=== PATIENT | male | born 1950 | race Two or more races ===

== ENCOUNTER 2022-04-07 07:13 | Inpatient (IN) | payer MEDICARE, MEDICAID ==
[2022-04-07] VITALS (35 sets, daily range): BP systolic 95–132; BP diastolic 24–73
[~2022-04-07] VITALS: Ht 190.5 cm; Wt 100.3 kg
[2022-04-07] MEDS ORDERED: ONDANSETRON HCL 4MG/2ML INJ IV STA ×2 (07:35→08:56)
[2022-04-07] MEDS ORDERED: MORPHINE SULFATE 4 MG/ML CPJ (NOT FOR IM USE) IV STA ×2 (07:35→08:56)
[2022-04-07] MEDS ORDERED: SODIUM CHLORIDE 0.9% 1,000 ML IV ONE (07:45)
[2022-04-07 07:50] LABS: HEMATOCRIT. 42.4 % (42.0-52.0); HEMOGLOBIN. 13.9 g/dL (14.0-18.0); MEAN CORPUSCULAR HEMOGLOBIN 30.5 pg (28.0-32.0); MEAN CORPUSCULAR VOLUME 93.4 fL (80.0-94.0); MEAN PLATELET VOLUME 8.7 fl (7.4-10.4); PLATELET 274 x1000/uL (130-400); RED BLOOD CELL COUNT 4.54 mill/uL (4.7-6.1); RED CELL DISTRIBUTION WIDTH 13.1 % (11.6-14.6)
[2022-04-07 08:01] LABS: PROTHROMBIN TIME 10.7 sec (9.6-11.0)
[2022-04-07 08:03] LABS: CHLORIDE 105 mEq/L (98-107)
[2022-04-07 08:12] LABS: PLATELET ESTIMATE NORMAL
[2022-04-07 08:13] LABS: ETHANOL BLOOD < 10 mg/dL
[2022-04-07] MEDS ORDERED: NITROGLYCERIN OINT 1GM/INCH UDPKT TD ONE (08:15)
[2022-04-07] MEDS ORDERED: ENOXAPARIN 100MG/ML SYR SUBCUT ONE (08:15)
[2022-04-07] MEDS ORDERED: NITROGLYCERIN 0.4MG TABLET SL SL PRN (08:45)
[2022-04-07] MEDS ORDERED: VERAPAMIL HCL 2.5 MG/1 ML 2ML VIAL IV ONE (09:59)
[2022-04-07] MEDS ORDERED: DIPHENHYDRAMINE 50MG/ML VIAL ONE (09:59)
[2022-04-07] MEDS ORDERED: LIDOCAINE HCL 1% 10 MG/ML 10ML VIAL ONE (10:00)
[2022-04-07] MEDS ORDERED: HEPARIN 1000 UNITS/ML 10ML ONE (10:00)
[2022-04-07] MEDS ORDERED: MIDAZOLAM HCL 2 MG/2 ML VIAL ONE (10:00)
[2022-04-07] MEDS ORDERED: FENTANYL CITRATE/PF 50MCG/ML 2ML VIAL ONE (10:00)
[2022-04-07] MEDS ORDERED: IODIXANOL 320MG/ML 100 ML BOTTLE IV ONE (10:01)
[2022-04-07] MEDS ORDERED: HEPARIN SODIUM 1,000 UNIT/1ML VIAL IV ONE (11:19)
[2022-04-07] MEDS ORDERED: CLOPIDOGREL 75MG TABLET ONE (11:22)
[2022-04-07] MEDS ORDERED: ATROPINE SULFATE 1MG/10ML SYR IV PRN (12:00)
[2022-04-07] MEDS ORDERED: ACETAMINOPHEN 325MG TABLET PO PRN ×3 (12:00→19:30)
[2022-04-07] MEDS: SODIUM CHLORIDE 0.45% 1,000 ML IV SCH ×2 (12:23→21:07)
[2022-04-07] MEDS ORDERED: GUAIFENESIN 200MG/10ML SUGAR FREE UDC PO PRN (19:30)
[2022-04-07] MEDS ORDERED: ONDANSETRON HCL 4MG/2ML INJ IV PRN (19:30)
[2022-04-07] MEDS ORDERED: DIPHENHYDRAMINE 50MG/ML VIAL IV PRN (19:30)
[2022-04-07] MEDS ORDERED: CLONIDINE 0.1MG TABLET PO PRN (19:30)
[2022-04-07] MEDS ORDERED: ZOLPIDEM TARTRATE 5MG TABLET PO PRN (21:00)
[2022-04-07] MEDS ORDERED: ATORVASTATIN CALCIUM 40MG TABLET PO SCH (21:00)
[2022-04-07] MEDS: SODIUM CHLORIDE 0.9% INJ 3ML FLUSH IVF SCH (21:08)
[2022-04-08] VITALS: BP 117/66
[2022-04-08 02:00] VITALS: BP 101/60
[2022-04-08 04:00] VITALS: BP 114/55
[2022-04-08] MEDS: SODIUM CHLORIDE 0.45% 1,000 ML IV SCH (05:08)
[2022-04-08] MEDS: SODIUM CHLORIDE 0.9% INJ 3ML FLUSH IVF SCH (05:09)
[2022-04-08 06:00] VITALS: BP 109/63
[2022-04-08 06:43] LABS: BASOPHILS % 0.4 % (0.0-2.0); EOSINOPHILS % 3.3 % (0.0-5.0); HEMATOCRIT. 41.5 % (42.0-52.0); HEMOGLOBIN. 13.5 g/dL (14.0-18.0); LYMPHOCYTES % 16.3 % (20.0-50.0); MEAN CORPUSCULAR HEMOGLOBIN 30.4 pg (28.0-32.0); MEAN CORPUSCULAR VOLUME 93.5 fL (80.0-94.0); MEAN PLATELET VOLUME 9.5 fl (7.4-10.4); MONOCYTES % 8.7 % (2.0-8.0); NEUTROPHILS % 71.3 % (40.0-76.0); PLATELET 220 x1000/uL (130-400); RED BLOOD CELL COUNT 4.43 mill/uL (4.7-6.1); RED CELL DISTRIBUTION WIDTH 13.1 % (11.6-14.6)
[2022-04-08 07:09] LABS: CHLORIDE 110 mEq/L (98-107)
[2022-04-08 07:16] LABS: HDL CHOLESTEROL 45 mg/dL (40-59); LDL CHOLESTEROL 44 mg/dL (5-100)
[2022-04-08 07:58] VITALS: BP 109/65
[2022-04-08] MEDS ORDERED: CLOPIDOGREL 75MG TABLET PO SCH (09:00)
[2022-04-08] MEDS ORDERED: ASPIRIN 81MG TABLET PO SCH (09:00)
[2022-04-08 10:00] VITALS: BP 105/63
== END 2022-04-08 13:22 | disposition left against medical advice (07) | DRG 247 ==
LOC: ER 07:13 → CVICU 09:20 → EDBEDREQ 09:23 → EDBEDREQTM 09:23 → ENRESERV 10:11 → 3WST 21:21 → CVICU 04-08 13:20 → 3WST 04-08 13:22
PROVIDERS: ADMIT Family Medicine; ATTEND Internal Medicine
PROC: 027034Z Dilation of Coronary Artery, One Artery with Drug-eluting Intraluminal Device, Percutaneous Approach (ICD-10-PCS; principal; 2022-04-07)
PROC: 4A023N7 Measurement of Cardiac Sampling and Pressure, Left Heart, Percutaneous Approach (ICD-10-PCS; 2022-04-07)
PROC: B211YZZ Fluoroscopy of Multiple Coronary Arteries using Other Contrast (ICD-10-PCS; 2022-04-07)
DX: I21.19 ST elevation (STEMI) myocardial infarction involving other coronary artery of inferior wall (principal); I25.110 Atherosclerotic heart disease of native coronary artery with unstable angina pectoris; E78.00 Pure hypercholesterolemia, unspecified; I10 Essential (primary) hypertension; Z53.29 Procedure and treatment not carried out because of patient's decision for other reasons; R00.1 Bradycardia, unspecified; Z20.822 Contact with and (suspected) exposure to COVID-19; Z79.82 Long term (current) use of aspirin; Z79.02 Long term (current) use of antithrombotics/antiplatelets
CPT/HCPCS: 36415; 71045; 80048; 80053; 80061; 80320; 83880; 84484; 85025; 85347; 87426; 92928; 93005; 93306; 93458; 99291; C1769; C1874; C1887; C1893; C9803; J1200; J1644; J1650; J2250; J2270; J2405; J3010; J3490; J7030; Q9967; G0480

== ENCOUNTER 2024-02-24 13:21 | Emergency (ER) | payer BC, MEDICAID ==
[~2024-02-24] VITALS: Ht 190.5 cm; Wt 100.0 kg
[2024-02-24 13:28] VITALS: TEMP 97.9; O2SAT 97
[2024-02-24 17:08] LABS: CLARITY URINE CLEAR (CLEAR); COLOR URINE YELLOW (YELLOW); GLUCOSE URINE NEGATIVE (NEGATIVE); KETONES URINE NEGATIVE (NEGATIVE); LEUKOCYTE ESTERASE URINE NEGATIVE (NEGATIVE); NITRITE URINE NEGATIVE (NEGATIVE); OCCULT BLOOD URINE NEGATIVE (NEGATIVE); PH URINE 5.5 (4.5-8.0); PROTEIN URINE TRACE (NEGATIVE); SPECIFIC GRAVITY URINE 1.022 (1.005-1.030); UROBILINOGEN URINE 0.2 E.U./dL (0.2-1.0)
[2024-02-24] MEDS ORDERED: NAPR500T7 MT (17:28)
[2024-02-24 17:40] LABS: BACTERIA URINE TRACE; RBC URINE NONE SEEN /hpf (0-2); SQUAMOUS EPITHELIAL CELL URINE FEW /lpf (RARE/1+); WBC URINE 0-2 /hpf (0-2)
[2024-02-24 17:52] VITALS: BP 183/99; PULSE 66; RESP 15
== END 2024-02-24 18:00 | disposition home or self-care (01) ==
LOC: ER 13:21
DX: M25.551 Pain in right hip (principal); I25.2 Old myocardial infarction
CPT/HCPCS: 73502; 81003; 99284

== ENCOUNTER 2025-10-10 07:07 | Emergency (ER) | payer OTHER, BC, MEDICAID ==
[~2025-10-10] VITALS: Ht 190.5 cm; Wt 88.0 kg
[~2025-10-10 07:07] MED LIST: NAPR-1486 MT
[2025-10-10 07:36] VITALS: TEMP 36.8; O2SAT 99
[2025-10-10] MEDS: LIDOCAINE 5% PATCH TOP STA (08:48)
[2025-10-10] MEDS: METHOCARBAMOL 500MG TABLET PO ONE (08:48)
[2025-10-10] MEDS ORDERED: METH-773 MT (10:23)
[2025-10-10] MEDS ORDERED: LIDO700A30 TP (10:23)
[2025-10-10 10:25] VITALS: BP 138/98; PULSE 82; RESP 16; O2SAT 100
== END 2025-10-10 10:54 | disposition home or self-care (01) ==
LOC: ER 07:07
DX: M54.16 Radiculopathy, lumbar region (principal); I25.2 Old myocardial infarction; Z96.643 Presence of artificial hip joint, bilateral; Z95.1 Presence of aortocoronary bypass graft; Z79.1 Long term (current) use of non-steroidal anti-inflammatories (NSAID); V43.52XA Car driver injured in collision with other type car in traffic accident, initial encounter; Y93.89 Activity, other specified; Y92.89 Other specified places as the place of occurrence of the external cause; Y99.8 Other external cause status
CPT/HCPCS: 72100; 73502; 99284